=== PATIENT | male | born 1970 | race Caucasian/White ===

== ENCOUNTER 2017-02-05 02:32 | Inpatient (IN) | payer BC ==
[~2017-02-05] VITALS: Wt 99.7 kg
[2017-02-05 03:54] VITALS: BP 125/68; PULSE 86; TEMP 97.6
[2017-02-05 05:19] VITALS: BP 125/68; PULSE 86; TEMP 97.6
[2017-02-05 07:39] LABS: BASO % 0.1 % (0.0-2.0); EOS # 0.2 (0.0-0.7); EOS % 1.4 % (0-4.0); GRAN # 12.2 (1.4-6.5); HEMATOCRIT 47.2 % (42.0-52.0); HEMOGLOBIN 15.7 g/dl (13.5-18.0); LYMPH # 1.7 (1.2-3.4); LYMPH % 10.7 % (20.0-51.0); MEAN CELL VOLUME 94 fl (80.0-100.0); MEAN CORPUSCULAR HEMOGLOBIN 31 pg (27.0-31.0); MEAN CORPUSCULAR HGB CONC 33 g/dl (33.0-37.0); MEAN PLATELET VOLUME 10.2 fl (7.4-10.4); MONO # 1.3 (0.1-0.6); MONO % 8.4 % (1.7-9.3); PLATELET COUNT 297 K/mm3 (130-400); RED BLOOD COUNT 5.03 M/mm3 (4.20-5.60); WHITE BLOOD COUNT 15.5 K/mm3 (4.8-10.8)
[2017-02-05 07:47] LABS: CALCIUM 7.9 mg/dL (8.4-10.2); CREATININE, serum 1.29 mg/dL (0.66-1.25); POTASSIUM 4.5 mmol/L (3.4-5.0)
[2017-02-05 07:54] VITALS: BP 101/48; PULSE 73; TEMP 98.1
[2017-02-05 14:10] VITALS: BP 118/57; PULSE 70; TEMP 97.7
== END 2017-02-05 16:55 | disposition home or self-care (01) | DRG 392 ==
LOC: SURG 02:32
PROVIDERS: Nurse Practitioner
DX: A08.4 Viral intestinal infection, unspecified (principal); N17.9 Acute kidney failure, unspecified; E86.0 Dehydration; F17.210 Nicotine dependence, cigarettes, uncomplicated
CPT/HCPCS: J1650; J7030

== ENCOUNTER 2017-02-08 12:37 | Observation (INO) | payer BC ==
[~2017-02-08] VITALS: Ht 182.9 cm; Wt 93.2 kg
[2017-02-08 13:36] LABS: BASO % 0.1 % (0.0-2.0); EOS # 0.1 (0.0-0.7); EOS % 0.5 % (0-4.0); GRAN % 74.8 % (42.2-75.2); HEMATOCRIT 51.5 % (42.0-52.0); LYMPH # 2.3 (1.2-3.4); LYMPH % 15.4 % (20.0-51.0); MEAN CELL VOLUME 90 fl (80.0-100.0); MEAN CORPUSCULAR HEMOGLOBIN 32 pg (27.0-31.0); MEAN CORPUSCULAR HGB CONC 35 g/dl (33.0-37.0); MEAN PLATELET VOLUME 9.9 fl (7.4-10.4); MONO # 1.3 (0.1-0.6); MONO % 8.9 % (1.7-9.3); PLATELET COUNT 315 K/mm3 (130-400); RED BLOOD COUNT 5.71 M/mm3 (4.20-5.60); REDCELL DISTRIBUTION WIDTH-CV 12.4 % (11.5-14.5)
[2017-02-08 13:49] LABS: ALBUMIN 4.2 gm/dL (3.5-5.0); BILIRUBIN,TOTAL 0.5 mg/dL (0.0-1.0); CALCIUM 9.2 mg/dL (8.4-10.2); CREATININE, serum 1.2 mg/dL (0.66-1.25); POTASSIUM 4.7 mmol/L (3.4-5.0); TOTAL PROTEIN 7.9 gm/dL (6.4-8.2)
[2017-02-08 13:54] LABS: C-REACTIVE PROTEIN 0.5 mg/dL (0.0-0.9)
[2017-02-08 19:24] VITALS: BP 114/65; PULSE 99; TEMP 98.6
[2017-02-08 23:32] VITALS: BP 102/45; PULSE 69; TEMP 98.4
[2017-02-09 04:00] VITALS: BP 122/53; PULSE 58; TEMP 98.4
[2017-02-09 07:12] LABS: BASO % 0.1 % (0.0-2.0); EOS # 0.3 (0.0-0.7); EOS % 3.8 % (0-4.0); GRAN # 4.8 (1.4-6.5); HEMATOCRIT 43.5 % (42.0-52.0); LYMPH # 2.5 (1.2-3.4); LYMPH % 28.5 % (20.0-51.0); MEAN CELL VOLUME 93 fl (80.0-100.0); MEAN CORPUSCULAR HGB CONC 33 g/dl (33.0-37.0); MEAN PLATELET VOLUME 10.5 fl (7.4-10.4); MONO # 1.1 (0.1-0.6); MONO % 12.1 % (1.7-9.3); PLATELET COUNT 266 K/mm3 (130-400); RED BLOOD COUNT 4.66 M/mm3 (4.20-5.60); REDCELL DISTRIBUTION WIDTH-CV 12.7 % (11.5-14.5)
[2017-02-09 07:16] LABS: HEMOGLOBIN 14.2 g/dl (13.5-18.0); MEAN CORPUSCULAR HEMOGLOBIN 30 pg (27.0-31.0)
[2017-02-09 07:17] LABS: CALCIUM 7.9 mg/dL (8.4-10.2); CREATININE, serum 1.22 mg/dL (0.66-1.25); POTASSIUM 3.7 mmol/L (3.4-5.0)
[2017-02-09 09:14] VITALS: BP 111/60; PULSE 61; TEMP 98.1
[2017-02-09 11:09] VITALS: BP 105/62; PULSE 68; TEMP 98.6
[2017-02-09 16:17] VITALS: BP 103/58; PULSE 59
[2017-02-09 19:34] VITALS: BP 138/65; PULSE 84; TEMP 98.5
[2017-02-10 03:51] VITALS: BP 147/50; PULSE 73; TEMP 98.3
[2017-02-10 08:21] VITALS: BP 110/67; PULSE 57; TEMP 97.3
[2017-02-10 12:06] VITALS: BP 123/64; PULSE 63; TEMP 98
[2017-02-10 16:23] VITALS: BP 114/55; PULSE 64; TEMP 98.2
[2017-02-10 19:29] VITALS: BP 119/65; PULSE 60; TEMP 97.5
[2017-02-11] VITALS: BP 118/62; PULSE 62; TEMP 97.9
[2017-02-11 04:00] VITALS: BP 121/62; PULSE 62; TEMP 97.8
[2017-02-11 08:47] VITALS: BP 110/61; PULSE 54; TEMP 97.7
[2017-02-11] MEDS ORDERED: CIPRO 500MG TA500 MG PO (10:29)
[2017-02-11] MEDS ORDERED: FLAGYL500 MG PO (10:31)
== END 2017-02-11 11:54 | disposition home or self-care (01) ==
LOC: COL.ER 12:37 → MEDICAL 15:04
PROVIDERS: Emergency Medicine; Physician Assistant
DX: K52.9 Noninfective gastroenteritis and colitis, unspecified (principal); D72.829 Elevated white blood cell count, unspecified; E87.2 Acidosis; F17.210 Nicotine dependence, cigarettes, uncomplicated; Z87.442 Personal history of urinary calculi; Z82.49 Family history of ischemic heart disease and other diseases of the circulatory system; Z83.3 Family history of diabetes mellitus; Z82.3 Family history of stroke
CPT/HCPCS: 99222-AI; 99232-AI; 99238; G0378; J0744; J1650; J2060; J2270; J2405; J7030; J7050; Q9967